=== PATIENT | female | born 1980 | race Caucasian/White ===

== ENCOUNTER 2021-11-04 14:48 | Outpatient (REF) | payer MEDICAID, SELFPAY | END 2021-11-04 14:49 | disposition home or self-care (01) | LOC: HO.LNP 14:48 | PROVIDERS: Visit Provider Otolaryngology | DX: Z11.2 Encounter for screening for other bacterial diseases (principal) | CPT/HCPCS: 87071 ==

== ENCOUNTER → 2022-12-14 15:00 | Outpatient (BNVA) | payer MEDICAID, SELFPAY | PROVIDERS: PCP Internal Medicine; Visit Provider Internal Medicine Endocrinology, Diabetes & Metabolism | DX: E03.9 Hypothyroidism, unspecified (principal); Z79.899 Other long term (current) drug therapy | CPT/HCPCS: 99202 ==

== ENCOUNTER 2023-01-25 15:47 | Outpatient (REF) | payer MEDICAID, SELFPAY ==
[2023-01-25 17:59] LABS: Free T4 (Free Thyroxine) 1.03 ng/dL (0.71-1.85)
[2023-01-27 06:34] LABS: Thyroid Peroxidase Antibodies 518 IU/mL (<9)
== END 2023-01-25 15:48 | disposition home or self-care (01) ==
LOC: HO.LAB 15:47
PROVIDERS: PCP Internal Medicine; Visit Provider Internal Medicine Endocrinology, Diabetes & Metabolism
DX: E03.9 Hypothyroidism, unspecified (principal)
CPT/HCPCS: 36415; 84439; 84443; 86376

== ENCOUNTER 2023-03-15 15:11 | Outpatient (REF) | payer OTHER, SELFPAY ==
[2023-03-15 18:25] LABS: Free T4 (Free Thyroxine) 1.21 ng/dL (0.71-1.85); Thyroid Stimulating Hormone 2.02 uIU/mL (0.32-4.0)
== END 2023-03-15 15:12 | disposition home or self-care (01) ==
LOC: HO.LAB 15:11
PROVIDERS: PCP Internal Medicine; Visit Provider Internal Medicine Endocrinology, Diabetes & Metabolism
DX: E03.9 Hypothyroidism, unspecified (principal)
CPT/HCPCS: 36415; 84439; 84443; 99212

== ENCOUNTER 2023-07-04 08:34 | Outpatient (REF) | payer OTHER, SELFPAY | END 2023-07-04 08:35 | disposition home or self-care (01) | LOC: HO.LAB 08:34 | PROVIDERS: PCP Internal Medicine; Visit Provider Internal Medicine Endocrinology, Diabetes & Metabolism | DX: E03.9 Hypothyroidism, unspecified (principal) | CPT/HCPCS: 36415; 84439; 84443; 99212 ==

== ENCOUNTER 2023-07-04 08:34 | Outpatient (AMB) | payer OTHER, SELFPAY ==
--- NOTE | 2023-07-04 08:35 | A.OFFVIS_ITS ---
Intake Vital Signs 07/04/23 08:36 Height 5 ft 8 in Weight 147 lb 11.355 oz BMI 22.5 BP 116/70 Blood Pressure Location Lt brachial Position Sitting Pulse 64 Pulse Source Pulse Oximeter Intake Visit Reasons: f/u hypothyroidism/ Confirmed Intake Note: Patient present for Hypothyroidism follow up visit. 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 Currently using 100 ug of levothyroxine . Denies + fatigue, +weight gain, -cold intolerance, +dry skin,- hair loss, +constipation. There is no hx of hyperlipidemia . Denies obstructive sx of goiter . Denies consuming any kelp or seaweed. Denies taking amiodarone. Denies current or desiring to become in near future. Menses: has IUD Biotin: Yes Family hx in uncle of [place] Tried Tirosint but no difference PFSH Medical History (Updated 12/14/22 @ 15:19 by Gage Reid MD) Hypothyroidism Surgical History History of anterior cruciate ligament surgery Family History Paternal Uncle Family history of thyroid problem Mother No problems noted. Father No problems noted. Social History Household Members: Significant Other Alcohol intake: current Alcohol intake frequency: other Alcohol type: beer, wine and hard liquor Patient Tobacco Use Status: Former Tobacco user Tobacco use type: Cigarette Substance Use Type: Marijuana Physical Exam Vital Signs: Last Vital Signs Pulse 64 07/04/23 08:36 BP 116/70 07/04/23 08:36 BMI result Body Mass Index 22.5 HEENT reveals absence of lid lag , stare or proptosis or eyebrow loss. Thyroid gland measure 30 gms . No nodules or tenderness palpated. There is no cervical adenopathy palpated. Lungs CTA. Heart S1, S2 Reg R/R -M/R/G. Abdominal exam benign. Skin exam reveals absence of dryness or thyroid dermopathy or vitiligo. Nail exam reveals absence of thyroid acropachy or oncholysis. Neurologic exam reveals 2+ reflexes . Muscle Strength is 5/5 proximally. There are no tremors in upper extremities. 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 She appears to be clinically and biochemically euthyroid Plan is to Coding Level of Care Code Est Pt Level 3 (68497) Diagnoses Hypothyroidism E03.9
[2023-07-04 08:36] VITALS: BP 116/70; PULSE 64; BMI 22.5
[2023-07-04 12:07] LABS: Free T4 (Free Thyroxine) 0.92 ng/dL (0.71-1.85); Thyroid Stimulating Hormone 2.94 uIU/mL (0.32-4.0)
== END 2023-07-04 09:26 | disposition home or self-care (01) ==
PROVIDERS: PCP Internal Medicine; Referring Provider Internal Medicine; Visit Provider Internal Medicine Endocrinology, Diabetes & Metabolism
DX: E03.9 Hypothyroidism, unspecified (principal)
CPT/HCPCS: 99213

== ENCOUNTER 2024-07-16 14:16 | Outpatient (AMB) | payer OTHER, SELFPAY ==
--- NOTE | 2024-07-16 14:17 | MHC.OFFVIS ---
Vital Signs 07/16/24 14:18 Height 5 ft 9 in Weight 144 lb 13.499 oz BMI 21.4 BP 112/62 Blood Pressure Location Lt brachial Position Sitting Pulse 58 Pulse Source Pulse Oximeter Intake Visit Reasons: Hypothyroidism (Adult) Intake Note: Patient present today for Hypo parathyroidism office visit. Cook Fishing Vessel Required: No Accompanied by: Self / Same As Patient Allergies mussels Allergy (Severe, Verified 07/16/24 14:23) Anaphylaxis Medication List - Last Reconciled 07/16/24 by Josephine Holland MD levonorgestrel (Mirena) 0 device intrauterine thyroid (pork) ([place] Thyroid) 60 mg PO DAILY HPI Comments Details: 42 YO F with who is seen for follow up for Hyothyroidism. Previously was seeing Dr. Reid , last saw him 2022. First diagnosed with Hypothyroidism 10/2022 with labs revealing elevated TSH . Was taking 100 ug of levothyroxine at the time of last follow up . Started seeing Dr. Tijerina who does alternative medicine, for the past 23 days she has switched to armour thyroid 60 mg daily. Patient currently denies heat or cold intolerance, feels bowel movements are irregular sometimes loose stools sometimes constipation, acne and hyperpigmentation, no hairloss, does report intermittent. palpitation, has chronic depression, reports anxiety , lost 6 lbs since 2022, reports fatigue. Feels armor thyroid is better for her. Patient denies any difficulty swallowing, pain on swallowing or voice changes or difficulty breathing. Patient denies any history of childhood neck radiation. Denies having ever used lithium, amiodarone or biotin supplements. Patient denies any family history of thyroid cancer Maternal side has thyroid disease. Maternal uncle has hyperthyroidism. Menses: has IUD Family hx in uncle of [employer] [place] quit smoking 2021 smokes marijuana one joint a month and eats gummies alcohol: 4 drinks a week Review of systems Constitutional: no fevers, chills or weight loss HEENT: no changes in vision Cardiac: No chest pain, discomfort or palpitations. Pulmonary: No SOB GI:No abdominal pain, no nausea or vomiting, no anorexia, no blood in stool : no burning micturition, dysuria or increase in urinary frequency Neurologic: No dizziness, no weakness in extremities Physical exam General: sitting comfortably in no acute distress HEENT: normocephalic/atraumatic, moist oral mucosa Neck: supple, symmetrical, no thyromegaly , no dorsocervical or supraclavicular fat pads Cardiac: normal heart sounds Pulm: normal breath sounds B/L, no added breath sounds Abd: not distended, no tenderness Extremities: no edema, no signs of myxedema [facility] Medical History (Updated 07/16/24 @ 15:18 by Josephine Holland MD) Low serum alkaline phosphatase Hypothyroidism Surgical History (Updated 07/16/24 @ 14:25 by ANETTE Mart) H/O knee surgery History of anterior cruciate ligament surgery Family History Paternal Uncle Family history of thyroid problem Mother No problems noted. Father No problems noted. Social History Household Members: Significant Other Alcohol intake: current Alcohol intake frequency: other Alcohol type: beer, wine and hard liquor Patient Tobacco Use Status: Former Tobacco user Tobacco use type: Cigarette Substance Use Type: Marijuana Physical Exam Vital Signs: Last Vital Signs Pulse 58 07/16/24 14:18 BP 112/62 07/16/24 14:18 BMI result Body Mass Index 21.4 Results Reviewed Results Reviewed: Laboratory Tests 01/25/23 03/15/23 07/04/23 15:59 16:16 09:22 TSH 1.70 2.02 2.94 Free T4 1.03 1.21 0.92 Thyroid Peroxidase Ab 518 H Alkaline phosphatase level ordered by Dr. Tijerina, noted to be at 41. Lower limit of normal was 44. [facility], patient showed me this lab on her phone. 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 However she had a lot of subjective symptoms as described in HPI in detail above and saw an alternative medicine provider who started her on [place] thyroid which she is taking a 60 mg daily. [place] Thyroid is desiccated thyroid hormone and around 65 mg of desiccated thyroid hormone contains 38 mcg T4 and 9 mcg of T3. Around 100 mcg of L T4 is equivalent to 67.5 mg of desiccated thyroid so she is on about equivalent dosage. I explained to the patient that [place] thyroid is denies from porcine sources as opposed to levothyroxine which is synthetic thyroid hormone. [place] thyroid has a different precaution of T4: T3 as opposed to levothyroxine which makes more normal physiology with the ratio of T4: T3 of 13-20:1. I explained to her that is potentially dangerous to take excessive ratio of T3 which might put her at risk of arrhythmias. She feels comfortable with continuing with her alternative medicine provider on continuing the [place] thyroid. At this time I will check her free T4 and TSH levels. We will inform her of these results. Plan: -ordered TSH, free T4 -we will continue on [place] Thyroid through her alternative medicine provider (2) Low serum alkaline phosphatase: Code(s): R74.8 - Abnormal levels of other serum enzymes Category: Medical Plan: On reviewing her labs from her alternative medicine provider I did notice that she was noted to have a low serum alkaline phosphatase level of 41. The lower limit of normal is 44. This was not bone specific. Patient does report history of left tibial fracture when she was in 8th grade due to a colleague gliding in her during softball. 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 Mother history of broken teeth. A rare condition called hypophosphatasia which is characterized by mutations in the tissue nonspecific alkaline phosphatase gene can result in low bone specific alkaline phosphatase levels and impaired bone mineralization. We will check her bone specific alkaline phosphatase levels as well as repeat her serum alkaline phosphatase level. Pyridoxal phosphate (vitamin B 6) levels are noted to be elevated in this condition. Plan: -check serum alkaline phosphatase, bone specific alkaline phosphatase and vitamin B6 levels Plan I spent 45 minutes in reviewing the record, seeing the patient and documenting in the medical record. Orders: Orders Free T4 (Free Thyroxine) Today E03.9 - Hypothyroidism, unspecified Alkaline Phosphatase Today R74.8 - Abnormal levels of other serum enzymes Alkaline Phosphatase Bone Today R74.8 - Abnormal levels of other serum enzymes Thyroid Stimulating Hormone Today E03.9 - Hypothyroidism, unspecified Vitamin B6 Today R74.8 - Abnormal levels of other serum enzymes Coding Level of Care Code Est Pt Level 4 (59226) Diagnoses Hypothyroidism due to Harish thyroiditis E06.3 Hypothyroidism type: due to Harish's thyroiditis Low serum alkaline phosphatase R74.8 Time Spent (min) 45
[2024-07-16 14:18] VITALS: BP 112/62; PULSE 58; BMI 21.4
== END 2024-07-16 15:21 | disposition home or self-care (01) ==
PROVIDERS: PCP Internal Medicine; Visit Provider Student in an Organized Health Care Education/Training Program
DX: E06.3 Autoimmune thyroiditis (principal); R74.8 Abnormal levels of other serum enzymes
CPT/HCPCS: 99214

== ENCOUNTER → 2024-07-16 14:16 | Outpatient (BNVA) | payer OTHER, SELFPAY | PROVIDERS: PCP Internal Medicine; Visit Provider Student in an Organized Health Care Education/Training Program | DX: E06.3 Autoimmune thyroiditis (principal); R74.8 Abnormal levels of other serum enzymes | CPT/HCPCS: 99212 ==

== ENCOUNTER 2024-07-26 09:36 | Outpatient (REF) | payer OTHER, SELFPAY ==
[2024-07-26 11:27] LABS: Alkaline Phosphatase 39 U/L (39-117)
[2024-07-26 11:48] LABS: Free T4 (Free Thyroxine) 0.71 ng/dL (0.71-1.85); Thyroid Stimulating Hormone 1.38 uIU/mL (0.32-4.0)
[2024-07-30 22:49] LABS: Alkaline Phosphatase Bone 8.3 mcg/L (5.0-18.8)
[2024-07-31 14:38] LABS: Vitamin B6 21.3 ng/mL (2.1-21.7)
== END 2024-07-26 09:37 | disposition home or self-care (01) ==
LOC: HO.LAB 09:36
PROVIDERS: Visit Provider Student in an Organized Health Care Education/Training Program
DX: R74.8 Abnormal levels of other serum enzymes (principal); E03.9 Hypothyroidism, unspecified
CPT/HCPCS: 36415; 84075; 84207; 84439; 84443